=== PATIENT | female | born 1970 | race Caucasian/White ===

== ENCOUNTER 2022-12-04 04:36 | Emergency (ER) | payer OTHER ==
[~2022-12-04] VITALS: Ht 149.9 cm; Wt 63.5 kg
[2022-12-04 05:05] VITALS: BP_SYST 162
--- NOTE | 2022-12-04 05:10 | NUR ---
Patient triaged and placed in ED RM 7. VSS and patient appears in no acute distress at this time. MD Minor notified of need for MSE. Report given to KYARA Pérez.
[2022-12-04] MEDS ORDERED: MORPHINE 2 MG/ML INJ. SYRINGE IVP ONE (05:15)
[2022-12-04] MEDS ORDERED: PROCHLORPERAZINE EDISYLATE 10 MG/2 ML VIAL IVP ONE ×2 (05:15→06:00)
[2022-12-04] MEDS ORDERED: NACL 0.9% 1,000 ML IV ONE ×2 (05:15→06:00)
--- NOTE | 2022-12-04 05:55 | NUR ---
Patient in ed bed 7 for c/o abdominal pain, nausea and vomiting continuous multiple times and had fever, chills. Patient denies past medical history. Patient said that maybe she "ate something or drank something that did not sit right but ate same thing and he was not sick." Patient alert and oriented x4. Respiration even and unlabored. Dr. Elizabeth assessing patient abdomen. Patient has "mild pain" in upper quadrant abdomen upon palpation. Will continue to monitor.
--- NOTE | 2022-12-04 06:26 | NUR ---
Clarified orders with Dr. Booth. New orders noted.
[2022-12-04 06:30] LABS: BASOPHILS % (AUTO) 0.3 % (0.0-2.0); EOSINOPHILS % (AUTO) 0.1 % (0.0-4.0); HEMATOCRIT 39.2 % (36-48); HEMOGLOBIN 13.2 g/dL (12.0-16.0); LYMPHOCYTES # (AUTO) 1.2 K/uL (1.0-5.5); MEAN CORPUSCULAR HEMOGLOBIN 31 pg (27-31); MEAN CORPUSCULAR HGB CONC 34 % (32-36); MEAN CORPUSCULAR VOLUME 91 fL (79.0-98.0); MONOCYTES # (AUTO) 0.3 K/uL (0.0-1.0); MONOCYTES % (AUTO) 2.8 % (1.7-9.3); NEUTROPHILS # (AUTO) 8.8 K/uL (1.8-7.7); NEUTROPHILS % (AUTO) 84.8 % (40.0-70.0); PLATELET COUNT (AUTO) 233 K/uL (130-430); RED BLOOD CELL COUNT(AUTO) 4.31 MIL/uL (4.2-6.2); RED CELL DISTRIBUTION WIDTH 13.3 % (9.0-15.0); WHITE BLOOD COUNT (AUTO) 10.4 K/uL (4.8-10.8)
[2022-12-04 06:31] LABS: BILIRUBIN,URINE NEGATIVE (NEGATIVE); COLOR,URINE YELLOW (YELLOW); GLUCOSE,URINE NEGATIVE (NEGATIVE); KETONES,URINE TRACE (NEGATIVE); LEUKOCYTE ESTERASE ,URINE 1+ (NEGATIVE); NITRITE, URINE NEGATIVE (NEGATIVE); PROTEIN URINE NEGATIVE (NEGATIVE); UROBILINOGEN,URINE 0.2 (0.2-1.0)
[2022-12-04 06:35] LABS: BLOOD, URINE TRACE (NEGATIVE); CLARITY/URINE HAZY (CLEAR)
[2022-12-04] MEDS ORDERED: MORPHINE 2 MG/ML INJ. SYRINGE ONE (06:35)
[2022-12-04 06:44] LABS: BACTERIA,URINE FEW /HPF (None Seen); WBC,URINE 20-50 /HPF (0-3)
[2022-12-04 06:48] LABS: CALCIUM 9.6 mg/dL (8.4-11.0); CREATININE 0.98 mg/dL (0.55-1.30)
[2022-12-04] MEDS ORDERED: ONDANSETRON HCL 4 MG/2 ML VIAL IVP ONE (07:00)
[2022-12-04 07:01] LABS: ALBUMIN 4.5 g/dL (3.4-4.8); TOTAL BILIRUBIN 0.7 mg/dL (0.0-1.0)
--- NOTE | 2022-12-04 07:10 | NUR ---
pATIENT SAID SHE TAKES BLOOD PRESSURE MEDICATION AND CHOLESTEROL MEDICATION
--- NOTE | 2022-12-04 07:29 | NUR ---
Report given to KYARA Mckinney for continuity of care. Patient stable.
[2022-12-04] MEDS ORDERED: NITR-85 PO (07:45)
[2022-12-04] MEDS ORDERED: ONDA-8 TL (07:46)
[2022-12-04 08:16] VITALS: BP_SYST 135
--- NOTE | 2022-12-04 08:19 | NUR ---
Patient given written and verbal discharge instructions and verbalizes understanding. ER MD DR EM discussed with patient the results and treatment provided. Patient in stable condition. ID arm band removed. IV catheter removed intact and dressing applied, no active bleeding. Rx of MACROBID AND ZOFRAN given. Patient educated on pain management and to follow up with PMD. Pain Scale 5/10. Opportunity for questions provided and answered. Medication side effect fact sheet provided.
== END 2022-12-04 08:16 | disposition home or self-care (01) ==
LOC: SED 04:36
DX: N39.0 Urinary tract infection, site not specified (principal); K52.9 Noninfective gastroenteritis and colitis, unspecified; R10.32 Left lower quadrant pain; R11.2 Nausea with vomiting, unspecified; I10 Essential (primary) hypertension; Z79.899 Other long term (current) drug therapy
CPT/HCPCS: 99284; 96374; 96361; 96375; 80053; 81000; 83690; 85025; 87086; 36415; J2405; J2270; J7030